=== PATIENT | female | born 1940 | race Caucasian/White ===

== ENCOUNTER 2017-12-25 13:13 | Observation (INO) | payer MEDICARE ==
[2017-12-25] MEDS ORDERED: CLINDAMYCIN 600MG/50ML PREMIX 600 MG/50 ML BAG IVPB ONE (14:11)
[2017-12-25 14:26] LABS: BASO % 0.2 % (0-6); EOS % 0.7 % (0-6); GRAN % 70.8 % (47-80); HEMATOCRIT 42.9 % (35.0-47.0); HEMOGLOBIN 14.1 gm/dl (11.6-16.0); LYMPH % 15.5 % (16-45); MEAN CELL VOLUME 86.1 fl (81-97); MEAN CORPUSCULAR HEMOGLOBIN 28.3 pg (27-33); MEAN CORPUSCULAR HGB CONC 32.9 g/dl (32-36); MEAN PLATELET VOLUME 10.5 fl (7.4-10.4); MONO % 12.8 % (0-9); PLATELET COUNT 343 K/uL (130-400); RED BLOOD COUNT 4.98 M/uL (3.80-5.40); RED CELL DISTRIBUTION WIDTH 13.2 % (11.5-14.5); WHITE BLOOD COUNT W/O DIFF 13.3 K/uL (4.2-12.2)
--- NOTE | 2017-12-25 14:32 | Emergency Department Record ---
History of Present Illness - General Chief complaint: Facial Swelling Stated complaint: INFECTION RT SIDE OF FACE Time Seen by Provider: 12/25/17 14:01 Source: Patient Mode of Arrival: Ambulatory Limitations: No limitations - History of Present Illness Initial Comments: The patient is here due to developing a facial infection about 2-3 days ago. Now she has a lot of swelling and redness to her cheek area. She denies any fever, chills, nausea, vomiting, or diarrhea. MD Complaint: Facial swelling Onset/Timin -: Days(s) Exposure: Unknown Symptoms: Itching, Facial swelling Severity: Mild, Moderate Previous Allergy History: None - Related Data Home Medications Medication Instructions Recorded Confirmed Last Taken Irbesartan [Avapro] 300 mg PO DAILY 12/25/17 12/25/17 1 Day Ago ~12/24/17 [place]-3/Dha/Epa/Fish Oil [Fish Oil 1 each PO DAILY 12/25/17 12/25/17 1 Day Ago 1,200 mg Softgel] ~12/24/17 Allergies Allergy/AdvReac Type Severity Reaction Status Date / Time niacin [NIACIN] Allergy Unknown HYPERSENSIT Verified 12/25/17 13:38 IVITY Travel Screening - Travel/Exposure Within Last 30 Days Have you traveled within the last 30 days?: No - Travel/Exposure Within Last Year Have you traveled outside the [place] in the last year?: No - Additonal Travel Details Have you been exposed to anyone with a communicable illness?: No - Travel Symptoms Symptom Screening: None Review of Systems Constitutional: Denies: Chills, Fever, Malaise Past Medical History - SOCIAL HISTORY Smoking Status: Never smoker Alcohol Use: None Drug Use: None - RESPIRATORY Hx Respiratory Disorders: No - CARDIOVASCULAR Hx Hypertension: Yes Comment:: hypercholesterolemia - GI Hx GI Disorders: No - Hx Genitourinary Disorders: No - ENDOCRINE Hx Diabetes: Yes (NIDDM) Family Medical History Any Significant Family History?: Yes Physical Exam - General General Appearance: Alert, Oriented x3, Cooperative, No acute distress - Head Head exam: Atraumatic, Normocephalic, Normal inspection - Eye Eye exam: Normal appearance, PERRL - ENT ENT exam: Other (There is diffuse R sided facial erythema from the lateral to the R eye to the anterior neck. There is a 2 cm abscess in the center of the R cheek that appears to be pointing at this time and almost ready to spontaneously drain.). negative: Normal exam - Neck Neck exam: Normal inspection, Full ROM. negative: Tenderness - Respiratory Respiratory exam: Normal lung sounds bilaterally. negative: Respiratory distress - Cardiovascular Cardiovascular Exam: Regular rate, Normal rhythm, Normal heart sounds - GI/Abdominal GI/Abdominal exam: Soft, Normal bowel sounds. negative: Tenderness - Extremities Extremities exam: Normal inspection, Full ROM, Normal capillary refill. negative: Tenderness Course Vital Signs 12/25/17 12/25/17 13:30 13:41 Temperature 98.8 F 98.8 F Pulse Rate [ 92 H Pulse Ox Probe] Respiratory 18 Rate Blood Pressure 148/88 [Left Arm] Pulse Ox 93 L - Reevaluation(s) Reevaluation #1: Procedure note: The R facial abscess was prepped with betadine and anesth. with Lido 1%. A # 11 blade was used to I and D the abscess. A small amount of purulence was expressed and cultured. There were no complications. 12/25/17 15:11 Reevaluation #2: The patient is doing very well and agrees to the plan for admission. I did discuss the case with Elinor (EDA) and she does accept the admission for Dr. Mathis. 12/25/17 15:12 Medical Decision Making - Data Complexity MDM Data: Labs Ordered and/or Reviewed - Lab Data Result diagrams: 12/25/17 14:18 12/25/17 14:18 Lab Results 12/25/17 Range/Units 14:18 WBC 13.3 H (4.2-12.2) K/uL RBC 4.98 (3.80-5.40) M/uL Hgb 14.1 (11.6-16.0) gm/dl Hct 42.9 (35.0-47.0) % MCV 86.1 (81-97) fl MCH 28.3 (27-33) pg MCHC 32.9 (32-36) g/dl RDW 13.2 (11.5-14.5) % Plt Count 343 (130-400) K/uL MPV 10.5 H (7.4-10.4) fl Gran % 70.8 (47-80) % Lymphocytes % 15.5 L (16-45) % Monocytes % 12.8 H (0-9) % Eosinophils % 0.7 (0-6) % Basophils % 0.2 (0-6) % Disposition Disposition: Admit Clinical Impression: Facial cellulitis Disposition: Still a Patient at [facility] Decision to Admit: Admit from ER Decision to Admit Date: 12/25/17 Decision to Admit Time: 15:13 Accepting Physician: Del. Time Discussed w/Accepting Physician: 15:13 Condition: (2) Stable Time of Disposition: 15:13 Quality - Quality Measures Quality Measures: N/A - Blood Pressure Screening View Details: Yes Does Patient Have Any of the Following: No Blood Pressure Classification: Normal BP Reading Systolic Measurement: 116 Diastolic Measurement: 78 Screening for High Blood Pressure: < Normal BP, F/U Not Required > [G8783]
[2017-12-25 14:39] LABS: BLOOD UREA NITROGEN 13 mg/dL (8-23); CREATININE 0.7 mg/dL (0.5-0.9); EST GLOMERULAR FILTRATION RATE > 60 mL/min; TOTAL PROTEIN 7.8 g/dL (6.6-8.7)
[2017-12-25 14:41] LABS: GLUCOSE,RANDOM 133 mg/dL (74-109)
[2017-12-25 14:44] LABS: ALB/GLOB RATIO 1.2 (1.1-1.8); ALBUMIN 4.2 g/dL (4.0-5.0); ALKALINE PHOSPHATASE 85 U/L (35-104); ALT/SGPT 24 U/L (<33); AST/SGOT 19 U/L (10.0-35.0); C-REACTIVE PROTEIN 7.34 mg/dL (<0.5)
[2017-12-25] MEDS ORDERED: ACETAMINOPHEN 500 MG TABLET PO PRN (15:58)
[2017-12-25] MEDS: METFORMIN 500 MG TABLET PO SCH (21:23)
[2017-12-25] MEDS: POTASSIUM CHLORIDE 20 MEQ TABLET PO SCH (21:25)
[2017-12-25] MEDS: CLINDAMYCIN 600MG/50ML PREMIX 600 MG/50 ML BAG IVPB SCH (21:32)
[2017-12-25] MEDS ORDERED: PAROXETINE HCL 10 MG TABLET PO SCH (22:00)
[2017-12-25] MEDS ORDERED: SIMVASTATIN 20 MG TABLET PO SCH (22:00)
[2017-12-26] MEDS: CLINDAMYCIN 600MG/50ML PREMIX 600 MG/50 ML BAG IVPB SCH (05:17)
[2017-12-26 07:04] LABS: BASO % 0.5 % (0-6); EOS % 1.9 % (0-6); GRAN % 67.2 % (47-80); HEMATOCRIT 40.4 % (35.0-47.0); HEMOGLOBIN 13.1 gm/dl (11.6-16.0); LYMPH % 21.2 % (16-45); MEAN CELL VOLUME 86.7 fl (81-97); MEAN CORPUSCULAR HEMOGLOBIN 28.1 pg (27-33); MEAN CORPUSCULAR HGB CONC 32.4 g/dl (32-36); MEAN PLATELET VOLUME 10.9 fl (7.4-10.4); MONO % 9.2 % (0-9); PLATELET COUNT 328 K/uL (130-400); RED BLOOD COUNT 4.66 M/uL (3.80-5.40); RED CELL DISTRIBUTION WIDTH 13.3 % (11.5-14.5); WHITE BLOOD COUNT W/O DIFF 10.2 K/uL (4.2-12.2)
[2017-12-26 07:32] LABS: ALB/GLOB RATIO 1.2 (1.1-1.8); ALBUMIN 3.8 g/dL (4.0-5.0); ALKALINE PHOSPHATASE 76 U/L (35-104); ALT/SGPT 20 U/L (<33); AST/SGOT 16 U/L (10.0-35.0); BLOOD UREA NITROGEN 14 mg/dL (8-23); CREATININE 0.7 mg/dL (0.5-0.9); EST GLOMERULAR FILTRATION RATE > 60 mL/min; GLUCOSE,RANDOM 161 mg/dL (74-109)
--- NOTE | 2017-12-26 08:45 | History & Physical ---
History of Present Illness - Date of Service Date of Service for History & Physical: 12/26/17 - History of Present Illness Admitting Diagnosis: 1. R Facial Cellulitis. History of Present Illness: Ms. Mejia is a 77 year-old female who presented to the ED on 07/04 with c/o right facial infection/swelling that began 2-3 days prior. She states the infection started as a pimple and the swelling slowly spread to her right eye and chin. She denied any fever, chills, nausea, vomiting, or diarrhea. Her history includes non-insulin dependent diabetes mellitus, hypertension, hypercholesteremia, and depression. In the ED, her vital signs were stable- BP 148/88, HR 92, T 98.8F, RR 18, Pulse ox of 93% on room air. Her CMP was unremarkable, except for glucose of 133. CRP 7.34, WBC of 13.3. Her right facial abscess was drained by Dr. Esteban- purulent drainage was sent for culture. Based on the extent of her facial cellulitis, proximity to her right eye, and history of diabetes, she was admitted for observation for IV abx. 12/26/17: Pt. is sitting up in her chair, she denies facial pain, she does c/o tenderness only with direct pressure. Her vital signs and morning labs have remained stable. Plan to change to PO cleocin 450mg q8h for total of 10 days and d/c home today. Travel Screening - Travel/Exposure Within Last 30 Days Have you traveled within the last 30 days?: No - Travel/Exposure Within Last Year Have you traveled outside the [place] in the last year?: No - Additonal Travel Details Have you been exposed to anyone with a communicable illness?: No - Travel Symptoms Symptom Screening: None Review of Systems Constitutional: Denies: Chills, Fever, Malaise Eyes: Reports: As per HPI. Denies: Eye discharge, Eye pain, Photophobia, Vision change ENT: Reports: As per HPI. Denies: Congestion, Dental pain, Ear pain, Epistaxis , Hearing loss, Throat pain Respiratory: Reports: As per HPI. Denies: Cough, Dyspnea, Hemoptysis, Stridor, Wheezes Cardiovascular: Reports: As per HPI. Denies: Arrhythmia, Chest pain, Dyspnea on exertion, Edema, Murmurs, Orthopnea, Palpitations, Paroxysmal nocturnal dyspnea, Rheumatic Fever, Syncope Endocrine: Reports: As per HPI. Denies: Fatigue, Heat or cold intolerance, Polydipsia, Polyuria Gastrointestinal: Reports: As per HPI. Denies: Abdominal pain, Constipation, Diarrhea, Hematemesis, Hematochezia, Melena, Nausea, Vomiting Genitourinary: Reports: As per HPI. Denies: Abnormal menses, Discharge, Dyspareunia, Dysuria, Frequency, Hematuria, Incontinence, Retention, Urgency Musculoskeletal: Reports: As per HPI. Denies: Arthralgia, Back pain, Gout, Joint swelling, Myalgia, Neck pain Skin: Reports: As per HPI Neurological: Reports: As per HPI. Denies: Abnormal gait, Confusion, Headache, Numbness, Paresthesias, Seizure, Tingling, Tremors, Vertigo, Weakness Psychiatric: Reports: As per HPI. Denies: Anxiety, Auditory hallucinations, Depression, Homicidal thoughts, Suicidal thoughts, Visual hallucinations Hematological/Lymphatic: Reports: As per HPI. Denies: Anemia, Blood Clots, Easy bleeding, Easy bruising, Swollen glands Past Medical History - SOCIAL HISTORY Smoking Status: Never smoker Alcohol Use: None Drug Use: None - RESPIRATORY Hx Respiratory Disorders: No - CARDIOVASCULAR Hx Cardio Disorders: Yes Hx Hypertension: Yes Comment:: hypercholesterolemia - NEURO Hx Neuro Disorders: No - GI Hx GI Disorders: No - Hx Genitourinary Disorders: No - ENDOCRINE Hx Endocrine Disorders: Yes Hx Diabetes: Yes (NIDDM) - MUSCULOSKELETAL Hx Musculoskeletal Disorders: No - PSYCH Hx Psych Problems: Yes Hx Anxiety: Yes - HEMATOLOGY/ONCOLOGY Hx Hematology/Oncology Disorders: No Family Medical History Any Significant Family History?: No H&P Meds/Allergies - Allergies Allergies: Allergies Allergy/AdvReac Type Severity Reaction Status Date / Time niacin [NIACIN] Allergy Unknown HYPERSENSIT Verified 12/25/17 13:38 IVITY - Home Medications Home Medications Medication Instructions Recorded Confirmed Last Taken Irbesartan [Avapro] 300 mg PO DAILY 12/25/17 12/25/17 1 Day Ago ~12/24/17 [place]-3/Dha/Epa/Fish Oil [Fish Oil 1 each PO DAILY 12/25/17 12/25/17 1 Day Ago 1,200 mg Softgel] ~12/24/17 Previous Rx's Medication Instructions Recorded Clindamycin HCl [Cleocin HCl] 450 mg PO Q8H #27 cap 12/26/17 - Active Medications Active Medications: Current Medications Acetaminophen (Tylenol 500mg Tab) 500 mg PO Q6H PRN PRN Reason: PAIN/TEMP Aspirin (Ecotrin (Ec)) 81 mg PO DAILY [facility] Hydrochlorothiazide (Hctz 25mg) 50 mg PO DAILY [facility] Clindamycin Phosphate (Cleocin 600 [id number]) 600 mg in 50 mls @ 100 mls/ hr IVPB Q8HR [facility] Last Infusion: 12/26/17 05:50 Dose: Infused Metformin HCl (Glucophage Ir) 500 mg PO BID [facility] Last Admin: 12/25/17 21:23 Dose: 500 mg Metoprolol Succinate (Toprol Xl) 50 mg PO DAILY [facility] Paroxetine HCl (Paxil) 10 mg PO QHS [facility] Last Admin: 12/25/17 21:24 Dose: 10 mg Potassium Chloride (Klor-Con) 20 meq PO BID [facility] Last Admin: 12/25/17 21:25 Dose: 20 meq Simvastatin (Zocor) 40 mg PO QHS [facility] Last Admin: 12/25/17 21:23 Dose: 40 mg Valsartan (Diovan) 160 mg PO DAILY [facility] Physical Exam - Vital Signs Vital Signs: Vital Signs - Last 24 Hrs Temp Pulse Resp BP BP Pulse Ox 12/26/17 05:46 98.7 F 87 20 145/70 95 12/26/17 01:00 98.3 F 71 18 135/72 96 12/25/17 20:30 99.2 F 82 20 110/64 94 L 12/25/17 17:58 98.4 F 93 H 18 104/66 93 L 12/25/17 16:00 18 12/25/17 15:58 97.2 F L 78 18 118/74 95 - General General Appearance: Alert, Oriented x3, Cooperative, No acute distress Limitations: No limitations - Head Head exam: Atraumatic, Normocephalic, Normal inspection - Eye Eye exam: Normal appearance, PERRL - ENT ENT exam: Other (There is diffuse R sided facial erythema from the lateral to the R eye to the anterior neck. There is a 2 cm abscess in the center of the R cheek that appears to be pointing at this time and almost ready to spontaneously drain.). negative: Normal exam - Neck Neck exam: Normal inspection, Full ROM. negative: Tenderness - Respiratory Respiratory exam: Normal lung sounds bilaterally. negative: Respiratory distress - Cardiovascular Cardiovascular Exam: Regular rate, Normal rhythm, Normal heart sounds - GI/Abdominal GI/Abdominal exam: Soft, Normal bowel sounds. negative: Tenderness - Rectal Rectal exam: Deferred - exam: Deferred - Extremities Extremities exam: Normal inspection, Full ROM, Normal capillary refill. negative: Tenderness - Neurological Neurological exam: Alert, Normal gait, Oriented X3, Reflexes normal - Psychiatric Psychiatric exam: Normal affect, Normal mood - Skin Skin exam: Other (Right facial swelling, slight erythema of mid-cheek, medipore tape and gauze dressing intact) Results - Labs Result Diagrams: 12/26/17 06:08 12/26/17 06:08 Labs Last 24 Hours: Laboratory Results - last 24 hr 12/26/17 12/26/17 06:08 06:08 WBC 10.2 RBC 4.66 Hgb 13.1 Hct 40.4 MCV 86.7 MCH 28.1 MCHC 32.4 RDW 13.3 Plt Count 328 MPV 10.9 H Gran % 67.2 Lymphocytes % 21.2 Monocytes % 9.2 H Eosinophils % 1.9 Basophils % 0.5 Sodium 139 Potassium 3.8 Chloride 97 L Carbon Dioxide 26.0 Anion Gap 16.0 BUN 14 Creatinine 0.7 Estimated GFR > 60 Random Glucose 161 H Calcium 9.0 Total Bilirubin 0.80 AST 16 ALT 20 Alkaline Phosphatase 76 Total Protein 7.0 Albumin 3.8 L Globulin 3.2 Albumin/Globulin Ratio 1.2 VTE H&P Assessment - Risk for VTE Risk for VTE: Yes Risk Level: Very Low Risk Assessment Date: 12/26/17 Risk Assessment Time: 10:51 VTE Orders Placed or Will Be Placed: No VTE Reason for No Prophylaxis: Not Indicated (mobility not impaired) Plan - Detailed Diagnosis and Plan (1) Facial cellulitis Current Visit: Yes Status: Acute Base Code: L03.211 - CELLULITIS OF FACE Comment: 12/26/17: Right facial cellulits, incision and drainage performed in ED , purulent drainage sent for culture. IV clindamycin 600mg initiated, changed to PO today- will d/c home, continue abx for total of 10 days (2) At risk for deep venous thrombosis Current Visit: Yes Status: Acute Base Code: Z91.89 - OTH PERSONAL RISK FACTORS, NOT ELSEWHERE CLASSIFIED Comment: Will order lovenox if admission greater than 24 hours Mobility not impaired at this time (3) Full code status Current Visit: Yes Status: Acute Base Code: Z78.9 - OTHER SPECIFIED HEALTH STATUS Comment: Pt. is full code status
--- NOTE | 2017-12-26 09:47 | Discharge Summary ---
Providers Discharge Summary Date: 12/26/17 Date of admission: 12/25/17 15:35 Expected Date of Discharge: 12/26/17 Attending physician: YANELI BUSTOS A Primary care physician: Not currently established, will f/u in [facility] until established with [facility] Physical Exam - Vital Signs Vital Signs: Vital Signs - Last 24 Hrs Temp Pulse Resp BP BP Pulse Ox 12/26/17 05:46 98.7 F 87 20 145/70 95 12/26/17 01:00 98.3 F 71 18 135/72 96 12/25/17 20:30 99.2 F 82 20 110/64 94 L 12/25/17 17:58 98.4 F 93 H 18 104/66 93 L 12/25/17 16:00 18 12/25/17 15:58 97.2 F L 78 18 118/74 95 - General General Appearance: Alert, Oriented x3, Cooperative, No acute distress Limitations: No limitations - Head Head exam: Atraumatic, Normocephalic, Normal inspection - Eye Eye exam: Normal appearance, PERRL - ENT ENT exam: Other (There is diffuse R sided facial erythema from the lateral to the R eye to the anterior neck. There is a 2 cm abscess in the center of the R cheek that appears to be pointing at this time and almost ready to spontaneously drain.). negative: Normal exam - Neck Neck exam: Normal inspection, Full ROM. negative: Tenderness - Respiratory Respiratory exam: Normal lung sounds bilaterally. negative: Respiratory distress - Cardiovascular Cardiovascular Exam: Regular rate, Normal rhythm, Normal heart sounds - GI/Abdominal GI/Abdominal exam: Soft, Normal bowel sounds. negative: Tenderness - Rectal Rectal exam: Deferred - exam: Deferred - Extremities Extremities exam: Normal inspection, Full ROM, Normal capillary refill. negative: Tenderness - Neurological Neurological exam: Alert, Normal gait, Oriented X3, Reflexes normal - Psychiatric Psychiatric exam: Normal affect, Normal mood - Skin Skin exam: Other (Right sided facial swelling/erythema. Dressing is clean/dry and intact. ) Hospitalization - Hospitalization Admission Diagnosis: 1. R Facial Cellulitis. - Problem List/Discharge Diagnosis (1) Facial cellulitis Current Visit: Yes Status: Acute Base Code: L03.211 - CELLULITIS OF FACE Comment: 12/26/17: Right facial cellulits, incision and drainage performed in ED , purulent drainage sent for culture. IV clindamycin 600mg initiated, changed to PO today- will d/c home, continue abx for total of 10 days (2) Diabetes mellitus Current Visit: Yes Status: Acute Base Code: E11.9 - TYPE 2 DIABETES MELLITUS WITHOUT COMPLICATIONS (3) At risk for deep venous thrombosis Current Visit: Yes Status: Acute Base Code: Z91.89 - OTH PERSONAL RISK FACTORS, NOT ELSEWHERE CLASSIFIED Comment: Will order lovenox if admission greater than 24 hours Mobility not impaired at this time (4) Full code status Current Visit: Yes Status: Acute Base Code: Z78.9 - OTHER SPECIFIED HEALTH STATUS Comment: Pt. is full code status - Hospitalization Course Disposition: Home, Self-Care Hospital Course: Ms. Mejia is a 77 year-old female who presented to the ED on 07/04 with c/o right facial infection/swelling that began 2-3 days prior. She states the infection started as a pimple and the swelling slowly spread to her right eye and chin. She denied any fever, chills, nausea, vomiting, or diarrhea. Her history includes non-insulin dependent diabetes mellitus, hypertension, hypercholesteremia, and depression. In the ED, her vital signs were stable- BP 148/88, HR 92, T 98.8F, RR 18, Pulse ox of 93% on room air. Her CMP was unremarkable, except for glucose of 133. CRP 7.34, WBC of 13.3. Her right facial abscess was drained by Dr. Esteban- purulent drainage was sent for culture. Based on the extent of her facial cellulitis, proximity to her right eye, and history of diabetes, she was admitted for observation for IV abx. 12/26/17: Pt. is sitting up in her chair, she denies facial pain, she does c/o tenderness only with direct pressure. Her vital signs and morning labs have remained stable. Plan to change to PO cleocin 450mg q8h for total of 10 days and d/c home today. Abnormal Labs: Abnormal Lab Results 12/26/17 12/26/17 Range/Units 06:08 06:08 MPV 10.9 H (7.4-10.4) fl Monocytes % 9.2 H (0-9) % Chloride 97 L (98-107) mmol/L Random Glucose 161 H (74-109) mg/dL Albumin 3.8 L (4.0-5.0) g/dL Condition at Discharge: (2) Stable Discharge Diagnosis: Right facial cellulitis VTE Discharge VTE Reason For No Overlap Therapy: Not Indicated (Mobility not impaired) Discharge Medications - Discharge Medications Prescriptions: Clindamycin HCl [Cleocin HCl] 450 mg PO Q8H #27 cap Home Medications: Ambulatory Orders Aspirin [Aspir 81] 81 mg PO DAILY tab 12/25/17 [Last Taken 1 Day Ago ~12/24/17] Hydrochlorothiazide [Hctz] 50 mg PO DAILY tab 12/25/17 [Last Taken 1 Day Ago ~ 12/24/17] Irbesartan [Avapro] 300 mg PO DAILY 12/25/17 [Last Taken 1 Day Ago ~12/24/17] Metformin HCl 500 mg PO BID tab 12/25/17 [Last Taken 1 Day Ago ~12/24/17] Metoprolol Succinate 50 mg PO DAILY tab 12/25/17 [Last Taken 1 Day Ago ~] [place]-3/Dha/Epa/Fish Oil [Fish Oil 1,200 mg Softgel] 1 each PO DAILY 12/25/17 [ Last Taken 1 Day Ago ~12/24/17] Paroxetine HCl 10 mg PO QHS tab 12/25/17 [Last Taken 1 Day Ago ~12/24/17] Potassium Chloride 20 meq PO BID packet 12/25/17 [Last Taken 1 Day Ago ~] Pravastatin Sodium 80 mg PO QHS tab 12/25/17 [Last Taken 1 Day Ago ~12/24/17] Clindamycin HCl [Cleocin HCl] 450 mg PO Q8H #27 cap 12/26/17 [Last Taken Unknown ] Discharge Plan - Discharge Instructions Activity at Discharge: Resume Usual Activities As Tolerated Diet at Discharge: Diabetic Diet Wound Primary Dressing Type: Bandaid Dressing Change: Daily Additional Instructions: Follow up with MAYA Aldrich at [facility] on 01/04 at 11:20 AM. [phone]. Please continue to work with [facility] to establish care with physician there. Continue cleocin 450mg every 8 hours- take with food Return to ED if you experience worsening facial swelling, drainage, pain, and any symptoms involving your eye Quality Measures - Quality Measures Quality Measures: Advance Directives, Documentation of Current Medications in Medical Record, Elder Maltreatment Screen and Follow-Up Plan, Screening for High Blood Pressure and F/U Documented - Current Medications Quality Measure: Measure #130: Documentation of Current Medications Documentation of Current Medications: <Current Medications Documented/Reviewed> [K9843] - Blood Pressure Screening Quality Measure: Screening for High Blood Pressure and Follow-Up Documented Does Patient Have Any of the Following: Active Dx of HTN Blood Pressure Classification: Hypertensive Reading Systolic Measurement: 145 Diastolic Measurement: 70 Screening for High Blood Pressure: Patient Exclusion, Hx of HTN [G9744] - Advance Directives Quality Measure: Measure #47: Care Plan Advance Directives Established: No Advance Directives Information Provided To Patient: Declined Advance Directives on File: No Living Will: No Power of Frankfurter Inspector: No Advance Care Planning: <Care Plan/Decision Maker Documented; Discussed & Documented> [[id number]] - Elder Abuse Suspicion Index Screening: Elder Abuse Suspicion Index Screening Rely on people for bathing, dressing, shopping, banking, etc: No Prevented from getting food, clothes, medication, etc: No Made to feel shamed or threatened by someone: No Forced to sign papers or use money against will: No Feel afraid, touched in ways not wanted or hurt physically: No Poor eye contact, withdrawn, malnourished, cuts or bruises: No Screening Result: Negative result EASI Reference Information: Jonel BAUM, Chandana C, Zaheer D, Ngoc Caballero.Development and validation of a tool to assist physicians identification of elder abuse: The Elder Abuse Suspicion Index (EASI ). Journal of Elder Abuse and Neglect, 2008; 20 (3): 276-300. - Elder Maltreatment Screen Quality Measures: Elder Maltreatment Screen and Follow-Up Plan Elder Maltreatment Screen: <Negative, No Follow-Up Plan Required> [G8734]
[2017-12-26] MEDS ORDERED: ASPIRIN 81 MG TABEC PO SCH (10:00)
[2017-12-26] MEDS ORDERED: HYDROCHLOROTHIAZIDE 25 MG TABLET PO SCH (10:00)
[2017-12-26] MEDS ORDERED: VALSARTAN 80 MG TAB PO SCH (10:00)
[2017-12-26] MEDS: POTASSIUM CHLORIDE 20 MEQ TABLET PO SCH (10:18)
[2017-12-26] MEDS: METFORMIN 500 MG TABLET PO SCH (10:18)
[2017-12-26] MEDS: METOPROLOL SUCC 50 MG TABLET PO SCH ×2 (10:18→10:24)
[2017-12-26] MEDS ORDERED: CLINDAMYCIN 150 MG CAP PO SCH (14:00)
== END 2017-12-26 12:00 | disposition home or self-care (01) ==
LOC: ER 13:13 → MEDSURG 15:35
PROVIDERS: ADMIT Internal Medicine; ATTEND Internal Medicine
DX: L03.211 Cellulitis of face (principal); I10 Essential (primary) hypertension; E78.00 Pure hypercholesterolemia, unspecified; E11.9 Type 2 diabetes mellitus without complications
CPT/HCPCS: 85025 ×2; 86140; 80053 ×2; G0378 ×2; 96365; 96366; 99220; 99285